=== PATIENT | female | born 1950 | race Caucasian/White ===

== ENCOUNTER 2016-08-22 11:25 | Outpatient (CLI) | payer MEDICARE, BC ==
[2013-09-01 10:17] VITALS: O2SAT 96
== END 2016-08-22 11:26 | disposition home or self-care (01) | DRG 554 ==
LOC: CONVCARE 11:25
PROVIDERS: ATTEND Orthopaedic Surgery
DX: M17.11 Unilateral primary osteoarthritis, right knee (principal); Z85.528 Personal history of other malignant neoplasm of kidney; Z90.5 Acquired absence of kidney; Z79.899 Other long term (current) drug therapy
CPT/HCPCS: 73564

== ENCOUNTER 2016-08-29 05:30 | Inpatient (IN) | payer MEDICARE, BC ==
[2016-08-29] MEDS: SCOPOLAMINE 1.5MG PATCH TD SCH (05:54)
[2016-08-29] MEDS ORDERED: LACTATED RINGERS 1,000 ML IV ONE ×2 (05:55→05:56)
[2016-08-29] MEDS ORDERED: SODIUM CHLORIDE 0.9% 1000ML 1,000 ML IV ONE (06:00)
[2016-08-29] MEDS: SODIUM CHLORIDE 0.9% FLUSH 10 ML SOL IV SCH ×6 (06:26→22:53)
[2016-08-29] MEDS ORDERED: SODIUM CHLORIDE 0.9% 1000ML 1,000 ML IV SCH (07:00)
[2016-08-29] MEDS ORDERED: TRANEXAMIC ACID 100 MG/ML SOL ONE (07:05)
[2016-08-29] MEDS ORDERED: SODIUM CHLORIDE 20 ML 40 ML ONE (07:06)
[2016-08-29] MEDS ORDERED: FENTANYL 100MCG/2ML SOL ONE (07:08)
[2016-08-29] MEDS ORDERED: MIDAZOLAM 2 MG/2 ML SOL ONE (07:08)
[2016-08-29] MEDS ORDERED: PROPOFOL 500 MG/50 ML EMU IV ONE (07:08)
[2016-08-29] MEDS ORDERED: MORPHINE SULFATE 0.5 MG/ML SOL ONE (07:09)
[2016-08-29] MEDS ORDERED: ROCURONIUM BROMIDE 10 MG/ML SOL IV ONE (07:33)
[2016-08-29] MEDS ORDERED: SUCCINYLCHOLINE CHLORIDE 20 MG/ML SOL IV ONE (07:33)
[2016-08-29] MEDS ORDERED: DEXAMETHASONE 20 MG/5 ML (4 MG/ML SOL) ONE (08:45)
[2016-08-29] MEDS ORDERED: CEFAZOLIN SODIUM 1 GM PDS ONE (08:46)
[2016-08-29] MEDS ORDERED: METOCLOPRAMIDE HYDROCHLORIDE 5 MG/ML SOL ONE (08:46)
[2016-08-29] MEDS: BUPIVACAINE LIPOSOME 20 ML SUS ONE ×2 (09:02→09:25)
[2016-08-29] MEDS ORDERED: MAGNESIUM HYDROXIDE 30 ML SUS PO PRN (09:35)
[2016-08-29] MEDS ORDERED: FLEET ENEMA PR PRN (09:35)
[2016-08-29] MEDS ORDERED: SODIUM CHLORIDE 0.9% 500 ML 500 ML IV PRN (09:35)
[2016-08-29] MEDS ORDERED: BISACODYL 10 MG SUP PR PRN (09:35)
[2016-08-29] MEDS ORDERED: MORPHINE SULFATE 10 MG/ML SOL IM PRN (09:35)
[2016-08-29] MEDS ORDERED: ALUMINUM/MAGNESIUM 30 ML SUS PO PRN (09:35)
[2016-08-29] MEDS ORDERED: PHENYLEPHRINE HYDROCHLORIDE 10 MG/ML SOL ONE (11:53)
[2016-08-29] MEDS: DEXTROSE/SALINE 0.45% 1,000 ML IV SCH ×2 (12:03→20:23)
[2016-08-29] MEDS: APAP/OXYCODONE 325/5 TAB PO PRN ×4 (12:11→20:28)
[2016-08-29] MEDS: HYDROMORPHONE HCL 2 MG/ML 1 ML SOL IV PRN ×2 (15:37→22:53)
[2016-08-29] MEDS: CEFAZOLIN (PREMIX) 1 GM 1 GM/50 ML SOL IV SCH (15:41)
[2016-08-29] MEDS: GABAPENTIN 100 MG CAP PO SCH (20:17)
[2016-08-29] MEDS: SENNOSIDES A AND B 8.6 MG TAB PO SCH (20:18)
[2016-08-29] MEDS: DIAZEPAM 5 MG TAB PO PRN (20:18)
[2016-08-30] MEDS: CEFAZOLIN (PREMIX) 1 GM 1 GM/50 ML SOL IV SCH (00:10)
[2016-08-30] MEDS: SODIUM CHLORIDE 0.9% FLUSH 10 ML SOL IV SCH ×4 (00:13→17:21)
[2016-08-30] MEDS: APAP/OXYCODONE 325/5 TAB PO PRN ×2 (01:01→04:47)
[2016-08-30] MEDS: LEVOTHYROXINE SODIUM 112 MCG TAB PO SCH (06:46)
[2016-08-30 07:15] LABS: CALCIUM 7.5 mg/dl (8.5-10.1); POTASSIUM 4.4 mMol/L (3.5-5.1)
[2016-08-30 07:26] LABS: MEAN CORPUSCULAR HGB CONC 34.9 gm/dl (32.0-36.0)
[2016-08-30] MEDS: ONDANSETRON HCL 4 MG TAB PO PRN (08:10)
[2016-08-30] MEDS: RIVAROXABAN 10 MG TAB PO SCH (08:13)
[2016-08-30] MEDS: GABAPENTIN 100 MG CAP PO SCH ×2 (08:13→20:02)
[2016-08-30] MEDS: OXYCODONE HYDROCHLORIDE 5 MG TAB PO PRN ×3 (09:35→19:56)
[2016-08-30] MEDS: ACETAMINOPHEN 325 MG PO SCH ×4 (09:35→20:02)
[2016-08-30] MEDS: SENNOSIDES A AND B 8.6 MG TAB PO SCH (20:03)
[2016-08-30] MEDS: DIAZEPAM 5 MG TAB PO PRN (22:18)
[2016-08-31] MEDS: OXYCODONE HYDROCHLORIDE 5 MG TAB PO PRN ×7 (00:34→23:16)
[2016-08-31] MEDS: LEVOTHYROXINE SODIUM 112 MCG TAB PO SCH (06:36)
[2016-08-31] MEDS: SODIUM CHLORIDE 0.9% FLUSH 10 ML SOL IV SCH ×3 (06:37→17:02)
[2016-08-31] MEDS: ONDANSETRON HCL 4 MG TAB PO PRN (06:40)
[2016-08-31 07:32] LABS: MEAN CORPUSCULAR HGB CONC 36.3 gm/dl (32.0-36.0)
[2016-08-31] MEDS: DIAZEPAM 5 MG TAB PO PRN (08:09)
[2016-08-31] MEDS: ACETAMINOPHEN 325 MG PO SCH ×4 (08:10→20:19)
[2016-08-31] MEDS: GABAPENTIN 100 MG CAP PO SCH ×2 (08:10→20:19)
[2016-08-31] MEDS: RIVAROXABAN 10 MG TAB PO SCH (08:11)
[2016-08-31] MEDS ORDERED: TEMAZEPAM 15MG 15 MG CAP PO PRN (08:58)
[2016-08-31] MEDS: SENNOSIDES A AND B 8.6 MG TAB PO SCH (20:19)
[2016-09-01] MEDS: OXYCODONE HYDROCHLORIDE 5 MG TAB PO PRN ×6 (04:44→21:25)
[2016-09-01] MEDS: SODIUM CHLORIDE 0.9% FLUSH 10 ML SOL IV SCH ×3 (04:45→18:17)
[2016-09-01] MEDS: LEVOTHYROXINE SODIUM 112 MCG TAB PO SCH (07:12)
[2016-09-01 07:14] LABS: MEAN CORPUSCULAR HGB CONC 35.5 gm/dl (32.0-36.0)
[2016-09-01] MEDS: ACETAMINOPHEN 325 MG PO SCH ×4 (08:40→21:24)
[2016-09-01] MEDS: RIVAROXABAN 10 MG TAB PO SCH (08:41)
[2016-09-01] MEDS: GABAPENTIN 100 MG CAP PO SCH ×2 (08:41→21:25)
[2016-09-01] MEDS: SCOPOLAMINE 1.5MG PATCH TD SCH (16:01)
[2016-09-01] MEDS: SENNOSIDES A AND B 8.6 MG TAB PO SCH (21:26)
[2016-09-02] MEDS: OXYCODONE HYDROCHLORIDE 5 MG TAB PO PRN ×4 (01:55→13:24)
[2016-09-02] MEDS: SODIUM CHLORIDE 0.9% FLUSH 10 ML SOL IV SCH (02:03)
[2016-09-02] MEDS: LEVOTHYROXINE SODIUM 112 MCG TAB PO SCH (06:55)
[2016-09-02 07:16] LABS: CALCIUM 7.5 mg/dl (8.5-10.1); POTASSIUM 4.5 mMol/L (3.5-5.1)
[2016-09-02 08:50] VITALS: BP 115/63; PULSE 98; RESP 20; TEMP 97.3; O2SAT 98
[2016-09-02] MEDS: ACETAMINOPHEN 325 MG PO SCH ×2 (08:55→13:21)
[2016-09-02] MEDS: GABAPENTIN 100 MG CAP PO SCH (08:56)
[2016-09-02] MEDS: RIVAROXABAN 10 MG TAB PO SCH (08:56)
== END 2016-09-02 14:30 | disposition home or self-care (01) | DRG 470 ==
LOC: ACUTE CARE 05:30
PROVIDERS: ADMIT Orthopaedic Surgery; ATTEND Orthopaedic Surgery
PROC: 0S9C00Z Drainage of Right Knee Joint with Drainage Device, Open Approach (ICD-10-PCS; 2016-08-29)
PROC: F01ZDFZ Gait and/or Balance Assessment using Assistive, Adaptive, Supportive or Protective Equipment (ICD-10-PCS; 2016-08-29)
PROC: F01ZBZZ Bed Mobility Assessment (ICD-10-PCS; 2016-08-29)
PROC: F02Z1ZZ Dressing Assessment (ICD-10-PCS; 2016-08-29)
PROC: F02Z3ZZ Grooming/Personal Hygiene Assessment (ICD-10-PCS; 2016-08-29)
PROC: 0SRC0J9 Replacement of Right Knee Joint with Synthetic Substitute, Cemented, Open Approach (ICD-10-PCS; principal; 2016-08-29 08:00)
DX: M17.11 Unilateral primary osteoarthritis, right knee (principal); C79.51 Secondary malignant neoplasm of bone; C64.9 Malignant neoplasm of unspecified kidney, except renal pelvis; Z96.651 Presence of right artificial knee joint; N28.9 Disorder of kidney and ureter, unspecified; Z90.5 Acquired absence of kidney; G89.18 Other acute postprocedural pain
CPT/HCPCS: 36415; 73560; 80048; 85027; 94150; 99070; J0330; J0690; J1100; J1170; J2250; J2274; J2765; J3010; A6232; J2704

== ENCOUNTER 2016-10-17 10:51 | Outpatient (CLI) | payer MEDICARE, BC ==
[2016-09-02 08:50] VITALS: O2SAT 98
== END 2016-10-17 10:52 | disposition home or self-care (01) | DRG 561 ==
LOC: CONVCARE 10:51
PROVIDERS: ATTEND Orthopaedic Surgery
DX: Z47.1 Aftercare following joint replacement surgery (principal); Z96.651 Presence of right artificial knee joint
CPT/HCPCS: 73562

== ENCOUNTER 2016-11-22 08:16 | Outpatient (CLI) | payer MEDICARE, BC ==
[2016-09-02 08:50] VITALS: O2SAT 98
== END 2016-11-22 08:17 | disposition home or self-care (01) | DRG 552 ==
LOC: CONVCARE 08:16
PROVIDERS: ATTEND Orthopaedic Surgery
DX: M54.6 Pain in thoracic spine (principal); Z98.890 Other specified postprocedural states
CPT/HCPCS: 72070

== ENCOUNTER 2018-02-19 08:38 | Outpatient (CLI) | payer MEDICARE, BC ==
[2016-09-02 08:50] VITALS: O2SAT 98
== END 2018-02-19 08:39 | disposition home or self-care (01) | DRG 561 ==
LOC: CONVCARE 08:38
PROVIDERS: ATTEND Orthopaedic Surgery
DX: Z47.1 Aftercare following joint replacement surgery (principal); Z96.651 Presence of right artificial knee joint
CPT/HCPCS: 73562